=== PATIENT | female | born 1990 | race Caucasian/White ===

== ENCOUNTER → 2019-03-07 04:05 | Observation (INO) ==
[2019-03-06 22:50] LABS: Basophils # 0.1 K/mcL (0.0-0.2); Basophils % 0.4 %; Eosinophils # 0.2 K/mcL (0.0-0.6); Hematocrit 33.4 % (35.3-44.9); Hemoglobin 11.3 g/dL (11.5-15.4); Immature Granulocytes % 0.5 % (0-4); Lymphocytes # 2.3 K/mcL (0.6-4.6); Lymphocytes % 13.9 %; Mean Corpuscular HGB Conc 33.8 g/dL (31.6-35.5); Mean Corpuscular Volume 82.9 fL (83.0-100.0); Monocytes % 5.9 %; Neutrophils # 13.1 K/mcL (1.6-8.9); Platelet Count 264 K/mcL (140-400); Red Blood Count 4.03 M/mcL (3.82-4.97); Red Cell Distribution Width 13.1 % (11.5-14.5); Segmented Neutrophils % 78.3 %; White Blood Count 16.7 K/mcL (4.3-11.1)
[2019-03-06 22:57] LABS: Amphetamine Screen,Urine Negative ng/mL (Cutoff=1000); Barbiturate Screen,Urine Negative ng/mL (Cutoff=200); Benzodiazepines Screen,Urine Negative ng/mL (Cutoff=200); Cannabinoid Screen,Urine Negative ng/mL (Cutoff = 50); Cocaine Screen,Urine Negative ng/mL (Cutoff= 300); Opiate Screen,Urine Negative ng/mL (Cutoff=300); Phencyclidine Screen,Urine Negative ng/mL (Cutoff=25); Protein/Creatinine Ratio,Urine 0.16 mg/mg (0.00-0.20)
[2019-03-06 23:12] LABS: Alanine Aminotransferase 11 Units/L (7-52); Aspartate Amino Transferase 9 Units/L (13-39); BUN/Creatinine Ratio 14 (6-26); Blood Urea Nitrogen 7 mg/dL (6-20); Carbon Dioxide 21 mEq/L (23-29); Chloride 105 mEq/L (98-107); Lactate Dehydrogenase 135 Units/L (140-271); Potassium 3.8 mEq/L (3.5-5.1); Sodium 136 mEq/L (136-145); Uric Acid 5.2 mg/dL (2.3-7.6); eGFR For African Americans > 60 (> 60); eGFR For Non-African Americans > 60 (> 60)
[~2019-03-07 04:05] MED LIST: Ondansetron 4 MG/2 ML VIAL IVP PRN; Ondansetron 4 MG/2 ML VIAL ONE; Ringers Solution, Lactated 1,000 ML IVC ONE; Ringers Solution, Lactated 1,000 ML ONE; Scopolamine Patch 1.5 MG PATCH.TD72 TD SCH
== END | disposition home or self-care (01) ==
LOC: 1NENULAB
PROVIDERS: ADMIT Registered Nurse; ATTEND Registered Nurse

== ENCOUNTER → 2019-03-30 19:08 | Observation (INO) ==
[~2019-03-30 19:08] MED LIST changes: +Acetaminophen 325 MG TABLET PO ONE; +NIFEdipine 10 MG CAPSULE PO ONE; -Ondansetron 4 MG/2 ML VIAL IVP PRN; -Ondansetron 4 MG/2 ML VIAL ONE; +Piperacillin/Tazobactam 3.375 GM in 0.9 % Sodium Chloride Mini Bag 100 ML IVPB SCH; -Ringers Solution, Lactated 1,000 ML IVC ONE; +Ringers Solution, Lactated 1,000 ML IVC SCH; -Ringers Solution, Lactated 1,000 ML ONE; -Scopolamine Patch 1.5 MG PATCH.TD72 TD SCH
== END | disposition critical access hospital (66) ==
LOC: 1NENULAB
PROVIDERS: ADMIT Advanced Practice Midwife; ATTEND Advanced Practice Midwife